=== PATIENT | female | born 1955 | race Two or more races ===

== ENCOUNTER 2022-02-15 08:00 | Day surgery (SDC) | payer MEDICARE, OTHER ==
[~2022-02-15] VITALS: Ht 160 cm; Wt 61.2 kg
[2022-02-15] MEDS ORDERED: IV NS 0.9% 250 ML IV ONE (13:26)
[2022-02-15] MEDS ORDERED: CT SWABBABLE VALVE TRANS SET 1 EA INFUS.SET MC ONE (13:26)
[2022-02-15] MEDS ORDERED: IOHEXOL-350 100 ML VIAL IV ONE (13:26)
--- NOTE | 2022-02-15 14:15 | NUR ---
RN/CTA PATIENT ALERT AND ABLE TO MADE NEEDS KNOW. CAME FROM [facility] FOR CTA PROCEDURE VIA [facility]. PATIENT AWARE WITH PLAN OF CARE, NOTED CONSENT NOTED IN CHAT. PATIENT DENIED PAIN OR SOB AT THIS TIME.
[2022-02-15] MEDS: METOPROLOL TARTRATE INJ 5 MG/5 ML AMPUL IVP PRN ×4 (14:20→14:35)
[2022-02-15] MEDS ORDERED: METOPROLOL TARTRATE INJ 5 MG/5 ML AMPUL ONE (14:22)
[2022-02-15 14:40] VITALS: BP 107/49
--- NOTE | 2022-02-15 14:50 | NUR ---
RN/CTA CTA PROCEDURE COMPLETED AT THIS TIME. PATIENT [id number], DENIED ANY SOB/PAIN. WILL BE GOING BACK TO [facility] VIA [facility]. IN STABLE CONDITION, STABLE VS. PLS SEE CTA INTERVENTION.
[2022-02-15] MEDS ORDERED: NITROGLYCERIN 0.4 MG/TAB BOTTLE SL ONE (15:00)
[2022-02-15] MEDS ORDERED: IV NS 0.9% 500 ML IV PRN (15:00)
== END 2022-02-15 23:59 | disposition short-term general hospital (02) ==
LOC: CT 08:00
PROVIDERS: ATTEND Internal Medicine Interventional Cardiology
DX: I34.81 Nonrheumatic mitral (valve) annulus calcification (principal); I25.10 Atherosclerotic heart disease of native coronary artery without angina pectoris; I70.0 Atherosclerosis of aorta
CPT/HCPCS: 75574; J3490; J7050; Q9967

== ENCOUNTER 2023-05-25 08:05 | Inpatient (IN) | payer MEDICARE, OTHER ==
[~2023-05-25] VITALS: Ht 157.5 cm; Wt 66.2 kg
[~2023-05-25 08:05] MED LIST: FENTANYL PF 100MCG/2ML AMPUL ONE; ROCURONIUM BROMIDE 50 MG/5 ML ONE
[2023-05-25 09:00] VITALS: BP 116/67; TEMP 97.5; O2SAT 99
[2023-05-25] MEDS ORDERED: LIDOCAINE 2%-EPI 1:100,000 30 ML VIAL ONE (10:12)
[2023-05-25] MEDS ORDERED: VANCOMYCIN 1 GM VIAL ONE (10:13)
[2023-05-25] MEDS ORDERED: dexaMETHasone SOD PHOSPHATE 2 ML ONE (10:13)
[2023-05-25] MEDS ORDERED: ROCURONIUM BROMIDE 50 MG/5 ML ONE (10:26)
[2023-05-25] MEDS ORDERED: ACETAMINOPHEN 325 MG TABLET PO PRN (14:00)
[2023-05-25] MEDS ORDERED: ONDANSETRON HCL/PF 4 MG/2 ML VIAL IV PRN (14:00)
[2023-05-25] MEDS: IV NS 0.9% 1,000 ML IV PRN (14:32)
[2023-05-25] MEDS: ACETAMINOPHEN 650 MG/20.3 ML UDC PO PRN (14:45)
[2023-05-25 16:00] VITALS: BP 139/81; TEMP 98.9; O2SAT 99
[2023-05-25] MEDS ORDERED: ASPI-1169 PO (17:10)
[2023-05-25] MEDS ORDERED: ATOR80TA PO (17:10)
[2023-05-25 20:00] VITALS: BP 125/75; TEMP 97.6; O2SAT 96
[2023-05-25] MEDS: VANCOMYCIN 1 GM in IV D5W 250ml IV SCH (21:44)
[2023-05-25] MEDS: HYDROMORPHONE 1 MG/1 ML DISP.SYRIN IV PRN (21:57)
== END 2023-05-26 15:01 | disposition home or self-care (01) | DRG 516 ==
LOC: DS 08:05 → MED 08:38
PROVIDERS: ADMIT Internal Medicine; ATTEND Internal Medicine
PROC: 0NBV0ZX Excision of Left Mandible, Open Approach, Diagnostic (ICD-10-PCS; principal; 2023-05-25)
PROC: 0NUR07Z Supplement Maxilla with Autologous Tissue Substitute, Open Approach (ICD-10-PCS; 2023-05-25)
PROC: 0NSR0ZZ Reposition Maxilla, Open Approach (ICD-10-PCS; 2023-05-25)
PROC: 0NST0ZZ Reposition Right Mandible, Open Approach (ICD-10-PCS; 2023-05-25)
PROC: 0NSV04Z Reposition Left Mandible with Internal Fixation Device, Open Approach (ICD-10-PCS; 2023-05-25)
PROC: 0NUT07Z Supplement Right Mandible with Autologous Tissue Substitute, Open Approach (ICD-10-PCS; 2023-05-25)
PROC: 0NBT0ZX Excision of Right Mandible, Open Approach, Diagnostic (ICD-10-PCS; 2023-05-25)
PROC: 0NBR0ZX Excision of Maxilla, Open Approach, Diagnostic (ICD-10-PCS; 2023-05-25)
DX: M84.48XA Pathological fracture, other site, initial encounter for fracture (principal); M87.88 Other osteonecrosis, other site; T81.83XA Persistent postprocedural fistula, initial encounter; X58.XXXA Exposure to other specified factors, initial encounter; M27.2 Inflammatory conditions of jaws; D16.4 Benign neoplasm of bones of skull and face; E78.5 Hyperlipidemia, unspecified; I25.10 Atherosclerotic heart disease of native coronary artery without angina pectoris; Z87.891 Personal history of nicotine dependence; Z86.73 Personal history of transient ischemic attack (TIA), and cerebral infarction without residual deficits; Z95.5 Presence of coronary angioplasty implant and graft; M27.49 Other cysts of jaw; Y93.9 Activity, unspecified; Y92.009 Unspecified place in unspecified non-institutional (private) residence as the place of occurrence of the external cause; J32.9 Chronic sinusitis, unspecified
CPT/HCPCS: 88305-TC; 88311-TC; A4223; G0378; J0690; J1100; J1170; J2704; J3010; J3370; J3490; J7030; J7060

== ENCOUNTER 2024-08-29 07:01 | Inpatient (IN) | payer MEDICARE, OTHER ==
[~2024-08-29] VITALS: Ht 157.5 cm; Wt 62.4 kg
[2024-08-29] VITALS (9 sets, daily range): BP systolic 104–142; BP diastolic 58–71; TEMP 97.5–98.2; O2SAT 95–100
[~2024-08-29 07:01] MED LIST changes: +ASPI-1169 PO; +ATOR80TA PO; -FENTANYL PF 100MCG/2ML AMPUL ONE; -ROCURONIUM BROMIDE 50 MG/5 ML ONE
[2024-08-29] MEDS ORDERED: ANESTHESIA TRAY IN PYXIS 1 EA TRAY MC ONE (07:02)
[2024-08-29] MEDS ORDERED: dexaMETHasone SOD PHOSPHATE 2 ML ONE (07:02)
[2024-08-29] MEDS ORDERED: LIDOCAINE 2%-EPI 1:100,000 30 ML VIAL ONE (07:02)
[2024-08-29] MEDS ORDERED: VANCOMYCIN 1 GM VIAL ONE (07:03)
[2024-08-29] MEDS ORDERED: OXYMETAZOLINE HCL NASAL SPRAY 30 ML BOTTLE NS ONE (07:03)
[2024-08-29] MEDS ORDERED: FENTANYL PF 250MCG/5ML AMPUL ONE (07:07)
[2024-08-29] MEDS ORDERED: ROCURONIUM BROMIDE 50 MG/5 ML ONE (07:08)
[2024-08-29] MEDS ORDERED: ACETAMINOPHEN 325 MG TABLET PO PRN ×2 (11:30→12:00)
[2024-08-29] MEDS: HYDROMORPHONE 1 MG/1 ML DISP.SYRIN IV PRN (11:31)
[2024-08-29] MEDS: IV NS 0.9% 1,000 ML IV PRN (11:42)
[2024-08-29] MEDS ORDERED: HYDROCODONE/APAP 10/325MG TABLET PO PRN (12:00)
[2024-08-29] MEDS ORDERED: MAGNESIUM HYDROXIDE 30 ML UDC PO PRN (12:00)
[2024-08-29] MEDS ORDERED: ONDANSETRON HCL/PF - ER 4 MG/2 ML VIAL IVP PRN (12:00)
[2024-08-29] MEDS ORDERED: MAG HYDROX/AL HYDROX/SIMETH 30 ML UDC PO PRN (12:00)
[2024-08-29] MEDS ORDERED: Z GUARD REMEDY 4 OZ OINT TP PRN (12:00)
[2024-08-29] MEDS ORDERED: ONDANSETRON HCL/PF 4 MG/2 ML VIAL IVP PRN ×2 (12:00)
[2024-08-29] MEDS: VANCOMYCIN 1 GM in IV D5W 250ml IV SCH (18:06)
[2024-08-30 07:17] LABS: EOSINOPHILS % (AUTO) 0.1 % (0.0-6.0); HEMATOCRIT 36 % (33-45); HEMOGLOBIN 11.4 g/dL (11.5-14.8); LYMPHOCYTES # (AUTO) 2.6 K/uL (0.8-4.8); LYMPHOCYTES % (AUTO) 15.5 % (20.0-44.0); MEAN CORPUSCULAR HEMOGLOBIN 27 PG (26.0-33.0); MEAN CORPUSCULAR HGB CONC 32 g/dl (31.0-36.0); MEAN CORPUSCULAR VOLUME 85 fL (82-100); MONOCYTES # (AUTO) 1.4 K/uL (0.1-1.30); MONOCYTES % (AUTO) 8.4 % (2.0-12.0); NEUTROPHILS # (AUTO) 12.8 K/uL (1.8-8.9); PLATELET COUNT (AUTO) 280 K/uL (150-450); RED BLOOD CELL COUNT(AUTO) 4.17 MIL/uL (4.0-5.2); RED CELL DISTRIBUTION WIDTH 14.1 % (11.5-15.0); WHITE BLOOD COUNT (AUTO) 16.9 K/uL (4.3-11.0)
[2024-08-30 08:03] LABS: CREATININE 0.6 mg/dL (0.6-1.3); POTASSIUM 4.4 mmol/L (3.5-5.1)
[2024-08-30] MEDS: ATORVASTATIN 40 MG TABLET PO SCH (08:11)
[2024-08-30] MEDS: ASPIRIN 81 MG TAB.CHEW PO SCH (08:11)
[2024-08-30] MEDS ORDERED: TRAM50TA2 PO (10:28)
[2024-08-30] MEDS ORDERED: AMOX-430 PO (10:28)
== END 2024-08-30 15:07 | disposition home or self-care (01) | DRG 909 ==
LOC: DS 07:01 → MED 08:00
PROVIDERS: ADMIT Nurse Practitioner Acute Care; ATTEND Nurse Practitioner Acute Care
PROC: 0N5R0ZZ Destruction of Maxilla, Open Approach (ICD-10-PCS; 2024-08-29)
PROC: 0NSR04Z Reposition Maxilla with Internal Fixation Device, Open Approach (ICD-10-PCS; 2024-08-29)
PROC: 0NST04Z Reposition Right Mandible with Internal Fixation Device, Open Approach (ICD-10-PCS; 2024-08-29)
PROC: 0N5V0ZZ Destruction of Left Mandible, Open Approach (ICD-10-PCS; 2024-08-29)
PROC: 0NUR07Z Supplement Maxilla with Autologous Tissue Substitute, Open Approach (ICD-10-PCS; 2024-08-29)
PROC: 0NBT0ZX Excision of Right Mandible, Open Approach, Diagnostic (ICD-10-PCS; 2024-08-29)
PROC: 0NPW04Z Removal of Internal Fixation Device from Facial Bone, Open Approach (ICD-10-PCS; principal; 2024-08-29 07:30)
DX: T86.831 Bone graft failure (principal); Y92.9 Unspecified place or not applicable; M27.2 Inflammatory conditions of jaws; E78.5 Hyperlipidemia, unspecified; I10 Essential (primary) hypertension; I25.10 Atherosclerotic heart disease of native coronary artery without angina pectoris; Z95.5 Presence of coronary angioplasty implant and graft; Z87.891 Personal history of nicotine dependence; Z85.118 Personal history of other malignant neoplasm of bronchus and lung; Z79.82 Long term (current) use of aspirin; Z79.899 Other long term (current) drug therapy; Y83.2 Surgical operation with anastomosis, bypass or graft as the cause of abnormal reaction of the patient, or of later complication, without mention of misadventure at the time of the procedure
CPT/HCPCS: 36415; 80048-TC; 85025-TC; 87102-TC; 88305-TC; 88311-TC; 88312-TC; A4223; C1713; G0378; J0690; J1100; J1171; J2405; J2704; J3010; J3370; J3490; J7030; J7060

== ENCOUNTER 2024-12-25 09:17 | Inpatient (IN) | payer MEDICARE, OTHER ==
[~2024-12-25] VITALS: Ht 160 cm; Wt 63.5 kg
[~2024-12-25 09:17] MED LIST changes: +AMOX-430 PO; +TRAM50TA2 PO
[2024-12-25 10:01] LABS: PLATELET COUNT (AUTO) 270 K/uL (150-450); RED BLOOD CELL COUNT(AUTO) 4.18 MIL/uL (4.0-5.2); RED CELL DISTRIBUTION WIDTH 14.8 % (11.5-15.0); WHITE BLOOD COUNT (AUTO) 5.8 K/uL (4.3-11.0)
[2024-12-25 10:11] LABS: CALCIUM, SERUM 9.3 mg/dL (8.5-10.1); CREATININE 0.7 mg/dL (0.6-1.3); SODIUM SERUM 141.0 mmol/L (136-145); UREA NITROGEN, BLOOD 15.0 mg/dL (7-18)
[2024-12-25 10:17] LABS: ASPARTATE AMINOTRANSFERASE 16.0 U/L (15-37); TOTAL PROTEIN, SERUM 7.6 g/dL (6.4-8.2)
[2024-12-25 10:29] LABS: INR 1.13 (0.91-1.10)
[2024-12-25] MEDS ORDERED: ALBUTEROL SULFATE 8 GM HFA.AER.AD IH PRN ×2 (13:00→15:00)
[2024-12-25] MEDS ORDERED: ALBUTEROL SULFATE 8 GM HFA.AER.AD ONE (13:02)
[2024-12-25] MEDS ORDERED: HYDROMORPHONE 1 MG/1 ML DISP.SYRIN IV PRN (15:00)
[2024-12-25] MEDS: ONDANSETRON HCL/PF 4 MG/2 ML VIAL IVP PRN (15:41)
[2024-12-25] MEDS ORDERED: ONDANSETRON HCL/PF 4 MG/2 ML VIAL ONE (15:41)
[2024-12-25 16:00] VITALS: BP_SYST 139; BP_SYST 143; BP_DIAS 62; BP_DIAS 65; TEMP 97.3; TEMP 98.2; O2SAT 100; O2SAT 98
[2024-12-25] MEDS ORDERED: LEVO75TA7 PO (16:06)
[2024-12-25] MEDS ORDERED: EVOL140P3 SQ (16:06)
[2024-12-25] MEDS: HYDROMORPHONE 1 MG/1 ML DISP.SYRIN IV PRN (18:11)
[2024-12-25] MEDS: IV NS 0.9% 1,000 ML IV PRN (18:12)
[2024-12-25] MEDS ORDERED: Medication Not On Formulary EA (Evolocumab (Repatha Sureclick) 140 MG) SQ SCH (19:30)
[2024-12-25 20:00] VITALS: BP 113/59; TEMP 97.9; O2SAT 95
[2024-12-26] MEDS: VANCOMYCIN 1 GM in IV D5W 250ml IV SCH (01:04)
[2024-12-26 07:30] VITALS: BP 120/58; TEMP 97.9; O2SAT 94
[2024-12-26] MEDS: LEVOTHYROXINE SODIUM 75 MCG TABLET PO SCH (09:00)
[2024-12-26] MEDS: ASPIRIN 81 MG TAB.CHEW PO SCH (09:00)
[2024-12-26 09:01] VITALS: TEMP 97.9
[2024-12-26] MEDS: ACETAMINOPHEN 325 MG TABLET PO PRN (09:01)
== END 2024-12-26 15:06 | disposition home or self-care (01) | DRG 496 ==
LOC: DS 09:17 → MED 14:53
PROVIDERS: ADMIT Internal Medicine; ATTEND Internal Medicine
PROC: 0NPW04Z Removal of Internal Fixation Device from Facial Bone, Open Approach (ICD-10-PCS; 2024-12-25)
PROC: 0N5T0ZZ Destruction of Right Mandible, Open Approach (ICD-10-PCS; 2024-12-25)
PROC: 0NUR0JZ Supplement Maxilla with Synthetic Substitute, Open Approach (ICD-10-PCS; 2024-12-25)
PROC: 0NBR0ZZ Excision of Maxilla, Open Approach (ICD-10-PCS; 2024-12-25)
PROC: 0NUR07Z Supplement Maxilla with Autologous Tissue Substitute, Open Approach (ICD-10-PCS; 2024-12-25)
PROC: 0NSR04Z Reposition Maxilla with Internal Fixation Device, Open Approach (ICD-10-PCS; principal; 2024-12-25 12:20)
DX: T84.69XA Infection and inflammatory reaction due to internal fixation device of other site, initial encounter (principal); S02.40CK Maxillary fracture, right side, subsequent encounter for fracture with nonunion; T81.83XA Persistent postprocedural fistula, initial encounter; S02.40DK Maxillary fracture, left side, subsequent encounter for fracture with nonunion; Y83.8 Other surgical procedures as the cause of abnormal reaction of the patient, or of later complication, without mention of misadventure at the time of the procedure; Y92.009 Unspecified place in unspecified non-institutional (private) residence as the place of occurrence of the external cause; M27.2 Inflammatory conditions of jaws; E78.5 Hyperlipidemia, unspecified; E03.9 Hypothyroidism, unspecified; I25.10 Atherosclerotic heart disease of native coronary artery without angina pectoris; I10 Essential (primary) hypertension; Z87.891 Personal history of nicotine dependence; Z95.5 Presence of coronary angioplasty implant and graft; D16.5 Benign neoplasm of lower jaw bone; Z85.118 Personal history of other malignant neoplasm of bronchus and lung; M89.38 Hypertrophy of bone, other site; Z79.60 Long term (current) use of unspecified immunomodulators and immunosuppressants
CPT/HCPCS: 36415; 80053-TC; 85025-TC; 85610-TC; 85730-TC; 88300-TC; 88305-TC; 88311-TC; A4223; A4338; C1713; C1781; G0378; J1171; J2405; J2704; J3373; J3490; J7030; J7060